=== PATIENT | female | born 1960 | race Caucasian/White ===

== ENCOUNTER 2016-07-09 13:39 | Observation (INO) | payer SELFPAY ==
--- NOTE | 2016-07-09 13:56 | CPEKG ---
Heart Rate: 86 RR Interval: 698 P-R Interval: 156 QRSD Interval: 88 QT Interval: 368 QTC Interval: 440 P [place]: 51 QRS [place]: 21 T Wave [place]: 50 EKG Severity - ABNORMAL ECG - EKG Impression: SINUS RHYTHM EKG Impression: PROBABLE POSTERIOR INFARCT Electronically Signed By: Amandeep Syed 09-Jul-2016 14:04:37
[2016-07-09] MEDS ORDERED: ASPIRIN 81 MG CHEWABLE TAB PO ONE (14:00)
--- NOTE | 2016-07-09 14:05 | EDPHY ---
H & P Time Seen by Provider: 07/09/16 13:47 HPI/ROS: CHIEF COMPLAINT: Right chest discomfort HISTORY OF PRESENT ILLNESS: 55-year-old woman has a significant family history for coronary disease with her father having an SC in his 30s. She woke up at 4: 00 a.m. today with some discomfort in her right posterior shoulder radiating to her right jaw which was not positional or exertional. Not associated with shortness of breath nausea or vomiting. Symptoms persisted on and off during the day today and then currently are resolved. Symptoms were mild and now gone. No dental symptoms. REVIEW OF SYSTEMS: Eye: no change in vision ENT: no sore throat Cardiac: No syncope or palpitations Pulmonary: no cough or SOB Abdomen: no vomiting, diarrhea, abdominal pain Musculoskeletal: no back pain Skin: no rash Neuro: no headache Constitutional: no fever : no urinary symptoms A comprehensive 10 point review of systems is otherwise negative aside from elements mentioned in the history of present illness. PAST MEDICAL HISTORY: Negative except for gastrointestinal surgery many years ago Social history: Nonsmoker, no drugs, family history significant for coronary disease in her father. Frequently travels back and forth to [facility] but last travel was in April more than 2 months ago. General Appearance: Alert and conversant, cooperative. Eyes: No scleral icterus. ENT, Mouth: Normal mucous membranes. Normal pharynx with no gum swelling and no dental tenderness to percussion. No trismus. Respiratory: Normal respiratory effort, breath sounds equal, lungs are clear to auscultation. Cardiovascular: Regular rate and rhythm. Gastrointestinal: Abdomen is soft and non tender. Neurological: Alert and oriented x3. Normally conversant. Face symmetric, normal movement and sensation in all extremities. Skin: Warm and dry, no rashes. Musculoskeletal: No peripheral edema and no joint swelling. No calf tenderness. Psychiatric: Not agitated. Emergency Department course/MDM: Oral aspirin, chest x-ray EKG and troponin; no nitroglycerin as patient is currently asymptomatic at the time of my evaluation. 1525: Seen by hospitalist emergency department. Admits to [facility] for risk stratification in a patient with unexplained chest and jaw symptoms and risk factors for acute coronary syndrome. Smoking Status: Never smoked Constitutional: Initial Vital Signs Temperature (C) 36.9 C 07/09/16 13:39 Heart Rate 93 07/09/16 13:39 Respiratory Rate 16 07/09/16 13:39 Blood Pressure 169/87 H 07/09/16 13:39 O2 Sat (%) 98 07/09/16 13:39 O2 Delivery Mode Room Air Allergies/Adverse Reactions: seasonal Allergy (Uncoded 07/09/16 13:45) Home Medications: Medication Instructions Recorded Docusate Sodium [Colace 100 MG (*)] 100 mg PO BID 07/09/16 Ibuprofen [Motrin (*)] 200 mg PO Q8 PRN 07/09/16 Loratadine [Claritin 10 mg] 10 mg PO DAILY PRN 07/09/16 Medical Decision Making - Diagnostics EKG Interpretation: 12-lead EKG interpreted by me; official reading is in trace master. My interpretation is sinus rhythm with 1/[address] depression in V2 and V3. Rate 86. Imaging: Chest x-ray personally interpreted shows very slight right pleural effusion otherwise negative. Differential Diagnosis: Differential considered including but not limited to musculoskeletal, pulmonary embolism, myocardial infarction, pneumothorax Consult/Admit Bed Type: [place] [address] - Data Points Laboratory Results: Laboratory Results 07/09/16 13:55 07/09/16 13:55 07/09/16 07/09/16 07/09/16 13:55 13:55 13:55 WBC 5.71 10^3/uL 10^3/uL (3.80-9.50) RBC 4.90 10^6/uL 10^6/uL (4.18-5.33) Hgb 12.0 g/dL L g/dL (12.6-16.3) Hct 38.0 % % (38.0-47.0) MCV 77.6 fL L fL (81.5-99.8) MCH 24.5 pg L pg (27.9-34.1) MCHC 31.6 g/dL L g/dL (32.4-36.7) RDW 17.6 % H % (11.5-15.2) Plt Count 366 10^3/uL 10^3/uL (150-400) MPV 9.9 fL fL (8.7-11.7) Neut % (Auto) 64.4 % % (39.3-74.2) Lymph % (Auto) 23.1 % % (15.0-45.0) [place] % (Auto) 10.7 % % (4.5-13.0) Eos % (Auto) 1.1 % % (0.6-7.6) Baso % (Auto) 0.5 % % (0.3-1.7) Nucleat RBC Rel Count 0.0 % % (0.0-0.2) Absolute Neuts (auto) 3.68 10^3/uL 10^3/uL (1.70-6.50) Absolute Lymphs (auto) 1.32 10^3/uL 10^3/uL (1.00-3.00) Absolute Monos (auto) 0.61 10^3/uL 10^3/uL (0.30-0.80) Absolute Eos (auto) 0.06 10^3/uL 10^3/uL (0.03-0.40) Absolute Basos (auto) 0.03 10^3/uL 10^3/uL (0.02-0.10) Absolute Nucleated RBC 0.00 10^3/uL 10^3/uL (0-0.01) Immature Gran % 0.2 % % (0.0-1.1) Immature Gran # 0.01 10^3/uL 10^3/uL (0.00-0.10) D-Dimer 0.28 ug/mLFEU ug/mLFEU (0.00-0.50) Sodium 136 mEq/L mEq/L (134-144) Potassium 3.9 mEq/L mEq/L (3.5-5.2) Chloride 103 mEq/L mEq/L (97-110) Carbon Dioxide 22 mEq/l mEq/l (22-31) Anion Gap 11 mEq/L mEq/L (8-16) BUN 13 mg/dL mg/dL (7-23) Creatinine 0.6 mg/dL mg/dL (0.6-1.0) Estimated GFR > 60 Glucose 91 mg/dL mg/dL (70-100) Calcium 9.6 mg/dL mg/dL (8.5-10.4) Troponin I < 0.012 ng/mL ng/mL (0-0.034) Medications Given: Discontinued Medications Aspirin (Aspirin) 324 mg PO EDNOW ONE Stop: 07/09/16 14:01 Last Admin: 07/09/16 14:04 Dose: 324 mg Departure - Departure Disposition: [facility] Acute Clinical Impression: Chest pain Qualifiers: Chest pain type: unspecified Qualified Code(s): R07.9 - Chest pain, unspecified Condition: Good
[2016-07-09 14:08] LABS: % IMMATURE GRANULYOCYTES 0.2 % (0.0-1.1); ABSOLUTE IMMATURE GRANULOCYTES 0.01 10^3/uL (0.00-0.10); ADD DIFF? NO; ADD MORPH? NO; ADD SCAN? NO; ATYPICAL LYMPHOCYTE FLAG 20 (0-99); FRAGMENT RBC FLAG 20 (0-99); LEFT SHIFT FLG 0 (0-99); LIPEMIA HEMOLYSIS FLAG 80 (0-99); MEAN CELL HEMOGLOBIN 24.5 pg (27.9-34.1); MEAN CELL HEMOGLOBIN CONCENTR. 31.6 g/dL (32.4-36.7); MEAN CELL VOLUME 77.6 fL (81.5-99.8); MEAN PLATELET VOLUME 9.9 fL (8.7-11.7); PLATELET CLUMPS FLAG 0 (0-99); PLATELET COUNT 366 10^3/uL (150-400); RED CELL DISTRIBUTION WIDTH 17.6 % (11.5-15.2)
[2016-07-09 14:24] LABS: ANION GAP 11 mEq/L (8-16); CALCIUM 9.6 mg/dL (8.5-10.4); CARBON DIOXIDE 22 mEq/l (22-31); CHLORIDE 103 mEq/L (97-110); CREATININE 0.6 mg/dL (0.6-1.0); GLOMERULAR FILTRATION RATE > 60; GLUCOSE 91 mg/dL (70-100); POTASSIUM 3.9 mEq/L (3.5-5.2); SODIUM 136 mEq/L (134-144)
[2016-07-09 14:36] LABS: TROPONIN I < 0.012 ng/mL (0-0.034)
[2016-07-09] MEDS ORDERED: IBUPROFEN 200 MG TAB PO PRN (15:40)
[2016-07-09] MEDS ORDERED: NON-FORMULARY NEW DRUG (Loratadine [Claritin 10 Mg] 10 MG) PO PRN (15:40)
[2016-07-09] MEDS ORDERED: CETIRIZINE 10 MG TAB PO PRN (15:44)
--- NOTE | 2016-07-09 16:19 | GHP ---
[f rep st] HISTORY AND PHYSICAL DATE OF ADMISSION: 07/09/2016 The patient is a 55-year-old female with minimal past medical history, with a family history of anibal nary disease. The father had an CA at age 37. She presents with right-sided jaw pain, came on at r est, which may be associated with some back pain as well. She was not diaphoretic or short of breat h. It sounds like she is not particularly active but does not have anginal symptoms with exertion. She does enjoy dancing and walking. There is no family history of pulmonary embolism, no personal history. She has not had hemoptysis, cough, fever, chills, nausea, vomiting, diarrhea. She is still menstruating. She describes her periods as moderately heavy. She never had a colonosc opy. REVIEW OF SYSTEMS: Complete 10-point review of systems conducted. Negative except as noted in the HPI. PAST MEDICAL HISTORY: Negative except for remote GI surgery. ALLERGIES: None. HOME MEDICATIONS: Colace, p.r.n. ibuprofen, loratadine. SOCIAL HISTORY: No tobacco. No alcohol. FAMILY HISTORY: As in the HPI. PHYSICAL EXAMINATION: VITAL SIGNS: Temperature 37, blood pressure 169/87, pulse 93, breathing 16 t imes a minute, 98% on room air. GENERAL: No acute distress. HEENT: Sclerae anicteric. Oropharyn x clear. Mucous membranes are moist. NECK: Supple without lymphadenopathy or JVD. LUNGS: Clear to auscultation bilaterally. HEART: S1, S2. ABDOMEN: Soft, nontender, nondistended. LOWER EXTRE MITIES: No edema. Calves nontender. SKIN: Without rash. NEUROLOGIC: Nonfocal. LABORATORY DATA: Sodium 136, potassium 3.9, chloride 103, bicarb 22, BUN 13, creatinine 0.6, glucos e 91, troponin less than 0.012. D-dimer 0.28 which is a negative value, white count 5.7, hemoglobin 12 which is low. MCV is low at 77.6. It is just an elevated RDW. EKG interpreted by hi shows sin us at 86 with normal axis and intervals. There is early R-wave progression and a bit of, perhaps a 0.5 mm, ST depression in V2 to V3. There is no prior for comparison. Chest x-ray interpreted by me shows no acute cardiopulmonary disease. I discussed the case Dr. Amandeep Syed. ASSESSMENT/PLAN: A 55-year-old female presents with potential anginal symptoms of jaw pain and shou lder pain. 1. Coronary artery disease. This is a moderately concerning story given her family history and abs ence of care prior. She has probably a nonischemic EKG. She has been given an aspirin. I will shraddha ck a lipid panel and perform stress test in the morning. I think the patient at this point in time does not require heparin or other interventions. 2. Hypertension. The patient is hypertensive on arrival. We will follow her blood pressures overn ight. She denies a history of hypertension, so we will follow. 3. Microcytic anemia. I will check iron studies. I have recommended a colonoscopy which she has n ot had. 4. Jaw pain. The patient has had some dental surgery remotely. She had normal mouth exam per the ER. I think this is not what is going on and so we will follow. 5. Prophylaxis. Pharmacologic prophylaxis indicated if in the hospital longer than 24 hours. 6. Disposition. Observation status. /[id number]/MODL
[2016-07-09] MEDS ORDERED: DOCUSATE SODIUM 100 MG CAP PO SCH (21:00)
--- NOTE | 2016-07-09 21:29 | CPEKG ---
Heart Rate: 70 RR Interval: 857 P-R Interval: 180 QRSD Interval: 90 QT Interval: 396 QTC Interval: 428 P [place]: 58 QRS [place]: 9 T Wave [place]: 32 EKG Severity - NORMAL ECG - EKG Impression: SINUS RHYTHM Electronically Signed By: Travis Anguiano 09-Jul-2016 23:34:02
[2016-07-10 04:48] LABS: CHOLESTEROL 230 mg/dL (140-220); CHOLESTEROL/HDL RATIO 3.29 RATIO (1.00-4.44); HIGH DENSITY LIPOPROTEIN 70 mg/dL (40-85); LDL/HDL RATIO 2.03 RATIO (1.00-3.22); LOW DENSITY LIPOPROTEIN 142 mg/dL (80-100); NON-HIGH DENSITY LIPOPROTEIN 160 mg/dL (90-129); TRIGLYCERIDE 93 mg/dL (35-135); VERY LOW DENSITY LIPOPROTEINS 18 mg/dL (8-25)
[2016-07-10 04:57] LABS: % SATURATION 8 % (20-55); TOTAL IRON BINDING CAPACITY 344 ug/dL (260-490)
[2016-07-10 05:00] LABS: TROPONIN I < 0.012 ng/mL (0-0.034)
[2016-07-10 05:23] LABS: FERRITIN - BCH 4.2 ng/mL (6.2-264.0)
--- NOTE | 2016-07-10 08:59 | CPEKG ---
Heart Rate: 73 RR Interval: 822 P-R Interval: 152 QRSD Interval: 84 QT Interval: 408 QTC Interval: 450 P [place]: 63 QRS [place]: 31 T Wave [place]: 53 EKG Severity - NORMAL ECG - EKG Impression: SINUS RHYTHM EKG Impression: Agree with above. No significant change from July 09, 2016 Electronically Signed By: Ian Vieyra 10-Jul-2016 12:10:22
[2016-07-10] MEDS ORDERED: ASPIRIN 325 MG TAB PO SCH (09:00)
--- NOTE | 2016-07-10 11:00 | CPR ---
[f rep st] NONINVASIVE CARDIAC PROCEDURE REPORT PROCEDURE PERFORMED: Exercise treadmill of exercise treadmill MPI study. INDICATION FOR PROCEDURE: Chest pressure, significant family history of coronary artery disease. PRE: After obtaining informed consent, the patient was placed on electrocardiogram. Initial EKG sh owed sinus rhythm, normal axis. No significant ST or T-wave abnormalities. Initial blood pressure 122/78, saturation 94% on room air. The patient denied any chest pain, pressure or symptoms suggest ирина of ischemia. STRESS: The patient was placed on exercise treadmill following standard Jesse protocol with the hima hanson findings. 1. Patient exercised for 6 minutes. 2. 7.1 METS. 3. Heart rate obtained was 171 BPM, which was 103% of MPHR. 4. Patient had no symptoms suggestive of ischemia. 5. At peak exercise, EKG was noted to have submillimeter upsloping ST depression (non ischemic) in the lateral leads. 6. SpO2 greater than 90% throughout the procedure. 7. BP variation: Resting 122/78, peak exercise 168/86. 8. The patient was noted to have a rare premature ventricular contraction in recovery. 9. Test was stopped due to maximum effort. 10. Perez treadmill score of 6, placing the patient at low cardiovascular risk. RECOVERY: The patient recovered for 5 minutes with returning of heart rate and blood pressure back to baseline. Remained asymptomatic. Rare premature ventricular contraction was noted. Final blood pressure was 126/78. She remained asymptomatic of any symptoms suggestive of ischemia. Vital sign s are stable. Patient transferred to Nuclear Medicine for post stress MPI imaging. IMPRESSION: A 55-year-old female with episodes of chest pressure, underwent exercise MPI study. St ress testing at peak exercise showed submillimeter upsloping ST depression in lateral leads (nondiag nostic for ischemia). Perez treadmill score of 6, placing her at low cardiovascular risk. MPI imagi ng still pending. /[id number]/MODL
[2016-07-10 12:08] VITALS: RESP 16
--- NOTE | 2016-07-10 14:11 | ECHO ---
[id number] + + [address] : : [place] [address] : : [phone] + + Adult Echocardiographic Report + + :Name: ZEUS NAM MStudy Date: 07/10/2016 01:25 PM : : Hospital Admission Number: [id number] Lo cation: 143: :: 1960 Gender: Female Height: 61 in : :Age: 55 yrs Race: WH Weight: 13 1 lb : :Reason For Study: Eval LV/history of old IN : : BSA: 1.6 m eters2 : + + MMode/2D Measurements \T\ Calculations IVSd: 0.53 cm LVIDd: 3.9 cm FS: 30.9 % Ao root diam: LVPWd: 0.61 cm LVIDs: 2.7 cm EDV(Teich): 3.2 cm 66.7 ml LA dimension: ESV(Teich): 3.6 cm 27.3 ml EF(Teich): 59.1 % LVLd ap4: 7.5 cm SV(MOD-sp4): EDV(MOD-sp4): 35.0 ml 47.0 ml LVLs ap4: 5.9 cm ESV(MOD-sp4): 12.0 ml EF(MOD-sp4): 74.5 % Normal Measurement Values: + + :LVIDd (3.5-5.7cm) IVSd (0.6-1.1cm) LVPWd (0.6-1.1cm) Aortic Root (2.0-3.7cm)Left Atrium (1.5-4.0cm): :LV Vol(d) (76-115ml) LV Vol(s) (29-48ml) Ejec Fraction (50-65%)PV Gael (0.6- 1.2m/s) TV Gael (0.4-1.0m/s) : :MV E Gael (0.8-1.0m/s)MV A Gael (0.3-1.0m/s)LVOT Gael (0.7-1.2m/s) Asc Ao Gael ( 0.9-1.8m/s) : + + Doppler Measurements \T\ Calculations MV E max gael: 60.2 cm/sec Ao V2 max: 109.0 cm/sec TR max gael: 243.0 cm/sec MV A max gael: 50.8 cm/sec Ao max P.8 mmHg TR max P.6 mmHg MV E/A: 1.2 RAP systole: 5.0 mmHg RVSP(TR): 28.6 mmHg Left Ventricle The left ventricle is normal in size. There is normal left ventricular wall thickness. Left ventricular systolic function is normal. Ejection Fraction = 65-70%. No regional wall motion abnormalities noted. Right Ventricle The right ventricle is normal in size and function. Atria The left atrial size is normal. Right atrial size is normal. The interatrial septum is intact with no evidence for an atrial septal defect. Mitral Valve The mitral valve is normal in structure and function. There is no evidence of mitral valve prolapse. There is no mitral valve stenosis. There is trace mitral regurgitation. Tricuspid Valve Normal tricuspid valve. There is mild tricuspid regurgitation. Aortic Valve The aortic valve is trileaflet. The aortic valve opens well. There is no aortic stenosis. There is no aortic insufficiency. Pulmonic Valve The pulmonic valve is normal in structure and function. Trace pulmonic valvular regurgitation. Great Vessels The aortic root is normal size. Pericardium/Pleural trivial pericardial effusion. Conclusion A complete two-dimensional transthoracic echocardiogram was performed (2D, M-mode, Doppler and color flow Doppler). Left ventricular systolic function is normal. Ejection Fraction = 65-70%. There is trace mitral regurgitation. There is mild tricuspid regurgitation. Trace pulmonic valvular regurgitation. trivial pericardial effusion. No regional wall motion abnormalities noted. Final Reading Physician: Mj Duggan signed on 07/10/2016 02:09 PM Ordering Physician: Arthur Tierney Performed By: Gem Cheatham RDCS
--- NOTE | 2016-07-10 15:36 | GDS ---
[f rep st] DISCHARGE SUMMARY This patient is a 55-year-old female with a history of hypertension and a family history of coronary disease, who presented with jaw pain. She had a nonischemic EKG with nonspecific T-wave changes. She had negative troponins. She had an exercise stress test showing poor exercise tolerance and questionable inferior lateral perfusion def ect at stress and rest. Subsequent echocardiogram demonstrated normal myocardial contractility and was essentially unremarkable. She had an elevated LDL at 142. She was also noted to have microcyti c anemia with iron deficiency. This is a new diagnosis. She is discharged home with a statin and instructions to take daily aspirin. Follow up with her [facility] physician for potential blood pressure management. She is to receive a colonoscopy given her concerning iron deficiency anemia. /[id number]/MODL
[2016-07-10 15:37] VITALS: BP 122/80; PULSE 70; TEMP 97.3; O2SAT 93
== END 2016-07-10 15:37 | disposition home or self-care (01) ==
LOC: F1N 15:29
PROVIDERS: ADMIT Internal Medicine; ATTEND Internal Medicine
DX: R68.84 Jaw pain (principal); R07.9 Chest pain, unspecified; I10 Essential (primary) hypertension; D50.9 Iron deficiency anemia, unspecified; Z82.49 Family history of ischemic heart disease and other diseases of the circulatory system
CPT/HCPCS: A9500; G0378

== ENCOUNTER → 2018-01-15 | Outpatient (CLI) | payer MEDICAID | LOC: BMCIMAGING 12:33 | PROVIDERS: ATTEND Obstetrics & Gynecology Gynecology | DX: Z12.31 Encounter for screening mammogram for malignant neoplasm of breast (principal) ==

== ENCOUNTER → 2018-09-30 | Outpatient (CLI) | payer MEDICAID | LOC: BMCIMAGING 08:43 ==